=== PATIENT | male | born 1985 | race American Indian/Alaskan Native ===

== ENCOUNTER 2017-09-05 06:34 | Emergency (ER) | payer SELFPAY ==
[2017-09-05 07:21] VITALS: BP 145/86
== END 2017-09-05 07:30 | disposition left against medical advice (07) ==
LOC: ED 06:34
DX: R07.9 Chest pain, unspecified (principal); Z53.21 Procedure and treatment not carried out due to patient leaving prior to being seen by health care provider
CPT/HCPCS: 93005; 93010